=== PATIENT | female | born 1985 | race Caucasian/White ===

== ENCOUNTER 2020-05-29 10:59 | Inpatient (IN) | payer OTHER ==
[2020-05-29] MEDS ORDERED: hydrALAZINE 20 MG/ML VIAL SLOW IVP PRN ×2 (11:49→21:20)
[2020-05-29] MEDS ORDERED: Lidocaine 1% (PF) 30 ML VIAL SC PRN (11:49)
[2020-05-29] MEDS ORDERED: HYDROcodone/Acetaminophen 5/325 mg Tablet PO PRN ×4 (11:49→21:20)
[2020-05-29] MEDS ORDERED: Misoprostol 200 MCG TAB PR PRN (11:49)
[2020-05-29] MEDS ORDERED: Ondansetron PF 4 MG/2 ML Vial IVP PRN ×2 (11:49→21:20)
[2020-05-29] MEDS ORDERED: Promethazine HCl 25 MG/ML VIAL IM PRN (11:49)
[2020-05-29] MEDS ORDERED: Methylergonovine 0.2 MG/ML VIAL IM PRN ×2 (11:49→21:20)
[2020-05-29] MEDS ORDERED: Ibuprofen 800 MG TAB PO PRN (11:49)
[2020-05-29] MEDS ORDERED: Lactated Ringer's 1,000 ML IV SCH (12:00)
[2020-05-29 12:15] VITALS: BMI 28.4
[2020-05-29 12:16] LABS: Hemoglobin 12.9 g/dL (12.0-15.5); Mean Corpuscular HGB CONC 34.8 g/dL (32.0-36.0); Mean Corpuscular Hemoglobin 32.5 pg (27.0-33.0); Mean Corpuscular Volume 93.5 fl (81.6-98.3); Mean Platelet Volume 11.9 fl (7.4-10.4); Platelet Count 254 10x3/uL (150-450); RBC Distribution Width 11.7 % (11.5-14.5); Red Blood Cell (RBC) Count 3.97 10x6/uL (3.90-5.03); White Blood Cell (WBC) Count 11.5 10x3/uL (3.5-10.5)
[2020-05-29] MEDS ORDERED: NS w/ Oxytocin 30 units 500 ML IV PRN (12:28)
[2020-05-29] MEDS ORDERED: NS w/ Oxytocin 30 units 500 ML IVPB SCH (12:30)
[2020-05-29 12:44] LABS: Hep B Surf Ag Non-Reactive S/CO (NonReactive); Syphilis Antibody Nonreactive (Nonreactive); Syphilis Antibody Index 0.03 S/CO (<1.00 Non-Reactive)
[2020-05-29 12:49] LABS: HBSAg Index 0.14 S/CO (0-0.99)
[2020-05-29] MEDS ORDERED: Benzocaine-Menthol 82.5 ML CAN TOP PRN (21:20)
[2020-05-29] MEDS ORDERED: Bisacodyl 10 MG SUPP PR PRN (21:20)
[2020-05-29] MEDS ORDERED: Milk Of Magnesia 30 ML UDCUP PO PRN (21:20)
[2020-05-29] MEDS ORDERED: Lanolin Ointment 7 GM TUBE TOP PRN (21:20)
[2020-05-29] MEDS ORDERED: Misoprostol 200 MCG TAB VAG PRN (21:20)
[2020-05-29] MEDS ORDERED: Adacel (T-DAP) 0.5 ML SYRINGE IM ONE (21:20)
[2020-05-29] MEDS ORDERED: NS w/ Oxytocin 30 units 500 ML IV SCH (22:15)
[2020-05-29 23:26] LABS: SARS-CoV-2 PCR NAA for Saliva Not Detected (NotDetected)
[2020-05-29] MEDS: Acetaminophen 500 MG TAB PO PRN (23:27)
[2020-05-30] MEDS: Ibuprofen 800 MG TAB PO SCH ×3 (02:57→12:10)
[2020-05-30] MEDS: Ferrous Sulfate 325 MG TAB PO SCH ×2 (08:04→16:19)
[2020-05-30] MEDS: Acetaminophen 500 MG TAB PO PRN ×2 (08:14→16:19)
[2020-05-30] MEDS ORDERED: Prenatal Vitamin 1 TAB PO SCH (09:00)
[2020-05-30] MEDS ORDERED: Docusate Calcium (SURFAK) 240 MG CAP PO SCH (09:00)
[2020-05-30 11:12] VITALS: BP 107/73; TEMP 98.3
== END 2020-05-30 18:35 | disposition home or self-care (01) | DRG 807 ==
LOC: CSHLD/OP 10:59 → CSHLD 11:37 → CSHPP 20:50
PROVIDERS: ADMIT Obstetrics & Gynecology; ATTEND Obstetrics & Gynecology
PROC: 10E0XZZ Delivery of Products of Conception, External Approach (ICD-10-PCS; principal; 2020-05-29)
PROC: 10907ZC Drainage of Amniotic Fluid, Therapeutic from Products of Conception, Via Natural or Artificial Opening (ICD-10-PCS; 2020-05-29)
PROC: 3E0234Z Introduction of Serum, Toxoid and Vaccine into Muscle, Percutaneous Approach (ICD-10-PCS; 2020-05-30)
DX: O99.892 Other specified diseases and conditions complicating childbirth (principal); M06.9 Rheumatoid arthritis, unspecified; Z20.822 Contact with and (suspected) exposure to COVID-19; O71.89 Other specified obstetric trauma; Z37.0 Single live birth; Z3A.39 39 weeks gestation of pregnancy; Z88.1 Allergy status to other antibiotic agents
CPT/HCPCS: 85027; 85461; 86780; 86850; 86870; 86900; 86901; 86922; 87340; 87635; 90384; 96372; 99285; U0003; U0005